=== PATIENT | female | born 1940 | race Caucasian/White ===

== ENCOUNTER → 2016-10-14 | Outpatient (CLI) | payer MEDICARE ==
[~2016-10-14] MED LIST: DENOSUMAB 60 MG/ML 1 ML SYRINGE SQ ONE
[2016-10-14 11:08] VITALS: BP 126/61; PULSE 68; RESP 16; TEMP 98.3
== END | disposition home or self-care (01) ==
LOC: PROCWHC3 10:27
PROVIDERS: ATTEND Family Medicine
DX: M81.0 Age-related osteoporosis without current pathological fracture (principal)
CPT/HCPCS: 96372; J0897

== ENCOUNTER → 2017-04-21 | Outpatient (CLI) | payer MEDICARE ==
[2017-04-21 10:51] VITALS: BP 123/69; PULSE 84; RESP 16; TEMP 97.8
== END ==
LOC: PROCWHC3 10:23
PROVIDERS: ATTEND Family Medicine
DX: M81.0 Age-related osteoporosis without current pathological fracture (principal)
CPT/HCPCS: 96372; J0897

== ENCOUNTER → 2017-10-28 | Outpatient (CLI) | payer MEDICARE ==
[~2017-10-28] MED LIST changes: +DENOSUMAB 60 MG/ML 1 ML SYRINGE SQ NR; -DENOSUMAB 60 MG/ML 1 ML SYRINGE SQ ONE
[2017-10-28 14:09] VITALS: BP 126/58; PULSE 67; RESP 16; TEMP 98.7
== END | disposition home or self-care (01) ==
LOC: PROCWHC3 13:50
PROVIDERS: ATTEND Family Medicine
DX: M81.0 Age-related osteoporosis without current pathological fracture (principal)
CPT/HCPCS: 96372; J0897

== ENCOUNTER → 2018-05-05 | Outpatient (CLI) | payer MEDICARE ==
[~2018-05-05] MED LIST changes: -DENOSUMAB 60 MG/ML 1 ML SYRINGE SQ NR; +DENOSUMAB 60 MG/ML 1 ML SYRINGE SQ ONE
[2018-05-05 14:07] VITALS: BP 145/75; PULSE 61; RESP 16; TEMP 97.9
== END | disposition home or self-care (01) ==
LOC: PROCWHC3 13:58
PROVIDERS: ATTEND Family Medicine
DX: M81.0 Age-related osteoporosis without current pathological fracture (principal)
CPT/HCPCS: 96372; J0897

== ENCOUNTER → 2018-05-18 | Outpatient (CLI) | payer MEDICARE ==
--- NOTE | 2018-05-21 11:14 | MM ---
Reason for exam: screening (asymptomatic). Last mammogram was performed 1 year and 1 month ago. History: Patient is postmenopausal and has history of breast cancer at age 44. Family history of breast cancer in paternal cousin and breast cancer in paternal aunt. Benign excisional biopsy of the right breast, 1985. Mastectomy of the left breast, 1985. Chemotherapy. Took tamoxifen for 27 years beginning at age 45. Physical Findings: A clinical breast exam by your physician is recommended on an annual basis and results should be correlated with mammographic findings. MG 3D Scr Sarah Unilateral W/Cad CC and MLO view(s) were taken of the right breast. Prior study comparison: May 02, 2017, bilateral MG 3d scr sarah unilateral w/cad. April 15, 2016, bilateral MG 3d screening mammo w/cad. The breast tissue is heterogeneously dense. This may lower the sensitivity of mammography. Asymmetric breast tissue upper outer quadrant stable with distortion from excisional biopsy. There is no discrete abnormality. ASSESSMENT: Benign, BI-RAD 2 RECOMMENDATION: Routine screening mammogram of the right breast in 1 year.
== END | disposition home or self-care (01) ==
LOC: RADMAMWWP 08:54
PROVIDERS: ATTEND Internal Medicine Hematology & Oncology
DX: Z12.31 Encounter for screening mammogram for malignant neoplasm of breast (principal)
CPT/HCPCS: 77067

== ENCOUNTER → 2018-06-01 | Outpatient (CLI) | payer MEDICARE ==
--- NOTE | 2018-06-02 19:05 | BD ---
EXAMINATION TYPE: Axial Bone Density DATE OF EXAM: 06/01/2018 COMPARISON: 05/03/2016 CLINICAL HISTORY: 77-year-old female postmenopausal screening Height: 63.2 IN Weight: 143 LBS FRAX RISK QUESTIONS: Secondary Osteoporosis: 3. Menopause before 45: YES AGE 44 RISK FACTORS HISTORY OF: Family History of Osteoporosis: YES AUNT Active: YES Postmenopausal woman: AGE 44 MEDICATIONS: Thyroid Medications: YES Which medication: Synthroid How Lon + YEARS Osteoporosis Medications: YES Which medication: Prolia How Lon YEARS Additional Medications: CALCIUM, VIT D, SYNTHROID, PROLIA, DAILY VIT, VIT C, FISH OIL Additional History: BREAST CANCER WITH CHEMO EXAM MEASUREMENTS: Bone mineral densitometry was performed using the [facility] System. Bone mineral density as measured about the Lumbar spine is: ----- L1-L4(G/cm2): 1.062 T Score Values are as follows: ----- L2: -1.7 ----- L3: -0.6 ----- L4: 0.3 ----- L1-L4: -1.0 ----- L1-L3: -1.5 (L4 excluded due to degenerative sclerosis artifactually elevating T score value) Bone mineral density has: Increased 5.1% since study of: 05/03/2016 Bone mineral density about the R hip (g/cm2): 0.930 Bone mineral density about the L hip (g/cm2): 0.945 T Score values are as follows: -----R Neck: -0.8 -----L Neck: -0.7 -----R Total: -0.9 -----L Total: -0.8 Bone mineral density has: Increased 3.2% since study of: 05/03/2016 IMPRESSION: Osteopenia (T Score between -2.5 and -1) (given T score values in the lumbar spine with L4 excluded i n the measurement due to degenerative sclerosis). There is slightly increased risk of fracture and the patient may be considered for treatment. Re-Screen 2-5 years. NOTE: T-SCORE=SD OF THE YOUNG ADULT MEAN.
== END | disposition home or self-care (01) ==
LOC: RADBDWWP 14:52
PROVIDERS: ATTEND Internal Medicine Hematology & Oncology
DX: M85.88 Other specified disorders of bone density and structure, other site (principal)
CPT/HCPCS: 77080

== ENCOUNTER → 2018-11-11 | Outpatient (CLI) | payer MEDICARE ==
[~2018-11-11] MED LIST changes: +DENOSUMAB 60 MG/ML 1 ML SYRINGE SQ NR; -DENOSUMAB 60 MG/ML 1 ML SYRINGE SQ ONE
[2018-11-11 11:03] VITALS: BP 128/73; PULSE 72; RESP 16; TEMP 97.9
== END ==
LOC: PROCWHC3 10:40
PROVIDERS: ATTEND Family Medicine
DX: M81.0 Age-related osteoporosis without current pathological fracture (principal)
CPT/HCPCS: 96372; J0897

== ENCOUNTER → 2019-05-14 | Outpatient (CLI) | payer MEDICARE ==
[~2019-05-14] MED LIST changes: -DENOSUMAB 60 MG/ML 1 ML SYRINGE SQ NR; +DENOSUMAB 60 MG/ML 1 ML SYRINGE SQ ONE
[2019-05-14 11:13] VITALS: BP 129/74; PULSE 61; RESP 18; TEMP 97.8
== END | disposition home or self-care (01) ==
LOC: PROCWHC3 10:57
PROVIDERS: ATTEND Family Medicine
DX: M81.0 Age-related osteoporosis without current pathological fracture (principal)
CPT/HCPCS: 96372; J0897

== ENCOUNTER → 2019-10-20 | Outpatient (CLI) | payer MEDICARE ==
--- NOTE | 2019-10-21 09:36 | MM ---
Reason for exam: screening (asymptomatic). Last mammogram was performed 1 year and 5 months ago. History: Patient is postmenopausal and has history of breast cancer at age 44. Family history of breast cancer in paternal cousin and breast cancer in paternal aunt. Benign excisional biopsy of the right breast, 1985. Mastectomy of the left breast, 1985. Chemotherapy. Took tamoxifen for 27 years beginning at age 45. Physical Findings: A clinical breast exam by your physician is recommended on an annual basis and results should be correlated with mammographic findings. MG 3D Scr Sarah Unilateral W/Cad Bilateral CC and MLO view(s) were taken. Prior study comparison: May 18, 2018, MG 3d scr sarah unilateral w/cad. May 02, 2017, bilateral MG 3d scr sarah unilateral w/cad. The breast tissue is heterogeneously dense. This may lower the sensitivity of mammography. No suspicious abnormality on the right breast. Stable post surgical change on the right breast. ASSESSMENT: Benign, BI-RAD 2 RECOMMENDATION: Routine screening mammogram of the right breast in 1 year.
== END | disposition home or self-care (01) ==
LOC: RADMAMWWP 11:01
PROVIDERS: ATTEND Internal Medicine Hematology & Oncology
DX: Z12.31 Encounter for screening mammogram for malignant neoplasm of breast (principal)
CPT/HCPCS: 77067

== ENCOUNTER → 2020-04-17 | Outpatient (CLI) | payer MEDICARE ==
[2020-04-17 11:26] LABS: Appearance,Urine Clear (Clear); Bilirubin,Urine Negative (Negative); Blood,Urine Trace (Negative); Color,Urine Light Yellow; Glucose,Urine (UA) Negative (Negative); Ketones,Urine Negative (Negative); Leukocyte Esterase,Urine Negative (Negative); Mucus,Urine Rare /hpf; Nitrite,Urine Negative (Negative); Protein,Urine Negative (Negative); RBC,Urine 1 /hpf (0-5); Specific Gravity,Urine 1.007 (1.001-1.035); Squamous Epithelial Cell,Urine <1 /hpf (0-4); Urobilinogen,Urine <2.0 mg/dL (<2.0); WBC,Urine 1 /hpf (0-5)
[2020-04-17 11:29] LABS: Basophils % (A) 1 %; Eosinophils # (A) 0.1 k/uL (0-0.7); Eosinophils % (A) 2 %; HCT 40.5 % (34.0-46.0); Lymphocytes % (A) 32 %; MCH 30.4 pg (25.0-35.0); MCHC 32.2 g/dL (31.0-37.0); MCV 94.3 fL (80.0-100.0); Mean Platelet Volume 6.5; Monocytes # (A) 0.4 k/uL (0-1.0); Monocytes % (A) 6 %; Neutrophils # (A) 3.6 k/uL (1.3-7.7); Neutrophils % (A) 57 %; Platelet Count 263 k/uL (150-450); RBC 4.29 m/uL (3.80-5.40); RDW 12.9 % (11.5-15.5); WBC 6.3 k/uL (3.8-10.6)
[2020-04-17 11:39] LABS: INR 0.9 (<1.2); Partial Thromboplastin Time 22.9 sec (22.0-30.0); Prothrombin Time 9.7 sec (9.0-12.0)
[2020-04-17 11:41] LABS: ALT 24 U/L (4-34); AST 29 U/L (14-36); African American GFR (CKD) >90 (>60 ml/min/1.73 sqM); Albumin 4.7 g/dL (3.5-5.0); Alkaline Phosphatase 54 U/L (38-126); Anion Gap 5 mmol/L; Blood Urea Nitrogen 16 mg/dL (7-17); Calcium 9.8 mg/dL (8.4-10.2); Carbon Dioxide 32 mmol/L (22-30); Chloride 102 mmol/L (98-107); Glucose 106 mg/dL (74-99); Non-African American GFR(CKD) >90 (>60 ml/min/1.73 sqM); Sodium 139 mmol/L (137-145); Total Bilirubin 0.5 mg/dL (0.2-1.3); Total Protein 7.4 g/dL (6.3-8.2)
== END | disposition home or self-care (01) ==
LOC: LABPAT 09:21
PROVIDERS: ATTEND Family Medicine
DX: Z01.818 Encounter for other preprocedural examination (principal); Z01.812 Encounter for preprocedural laboratory examination
CPT/HCPCS: 80053; 81001; 85025; 85610; 85730; 87070

== ENCOUNTER 2020-04-24 08:40 | Day surgery (SDC) | payer MEDICARE ==
[2020-04-17 14:47] VITALS: BMI 23.8
--- NOTE | 2020-04-23 10:44 | HP ---
HISTORY AND PHYSICAL REASON FOR ADMISSION: Surgery is scheduled for 04/24/2020. HISTORY OF PRESENT ILLNESS: Maria Mohamud is a 79-year-old patient seen with symptomatic right hip osteoarthritis. We discussed options for treatment. She elected to proceed with direct anterior right total hip arthroplasty. Consent regarding the procedure was obtained. Clearance was provided by Dr. Babcock. PAST MEDICAL HISTORY: Hypothyroidism. PAST SURGICAL HISTORY: Bilateral total knee arthroplasty. MEDICATIONS: Lipitor, Synthroid, tramadol, aspirin. ALLERGIES: None. SOCIAL HISTORY: She denies current tobacco use. PHYSICAL EXAMINATION: Evaluation of the right hip: There is very limited range of motion with severe pain. Diffuse tenderness about the hip girdle. Straight leg raise is negative. Impingement sign is positive. Distal neurovascular exam is intact. RADIOGRAPHS: Radiographs of the right hip reveals severe osteoarthritic changes. IMPRESSION: 1. Right hip osteoarthritis. 2. Hypothyroidism. 3. Hyperlipidemia. PLAN: Direct anterior right total hip arthroplasty. Surgery is 04/24/2020. MMODL / IJN: [id number] /
[~2020-04-24 08:40] MED LIST changes: +ACETAMINOPHEN TAB 500 MG TAB PO PRN; -DENOSUMAB 60 MG/ML 1 ML SYRINGE SQ ONE; +DEXAMETHASONE SOD PHOSPHATE 4 MG/ML 1 ML VIAL IV ONE; +HYDROmorphone 0.5 MG/0.5 ML SYRINGE IVP PRN; +MELOXICAM 7.5 MG TAB PO PRN; +ONDANSETRON 4 MG/2 ML VIAL IVP ONE; +TRANEXAMIC ACID 1,000 MG in SODIUM CHLORIDE 0.9% 100 ML IVPB PRN
[2020-04-24] MEDS: LACTATED RINGERS 1,000 ML IV SCH ×2 (09:28→15:57)
[2020-04-24] MEDS ORDERED: ePHEDrine SULFATE/0.9% NACL/PF 50 MG/5 ML SYRINGE IV ONE (09:47)
[2020-04-24] MEDS ORDERED: TRANEXAMIC ACID 1,000 MG/10 ML VIAL ONE (09:47)
[2020-04-24] MEDS ORDERED: PROPOFOL 10 MG/ML 20 ML VIAL IV ONE (09:47)
[2020-04-24] MEDS ORDERED: MIDAZOLAM 2 MG/2 ML VIAL ONE (09:47)
[2020-04-24] MEDS ORDERED: fentaNYL (PF) 50 MCG/ML 2 ML AMP ONE (09:47)
[2020-04-24] MEDS ORDERED: SODIUM CHLORIDE 0.9% 100 ML BAG ONE (09:47)
[2020-04-24] MEDS: ROPIVACAINE 246.25 MG, EPINEPHrine 0.5 MG, KETOROLAC 30 MG, cloNIDine HCL/PF 80 MCG, WA... MISCELLANE PRN ×10 (09:49→11:07)
[2020-04-24] MEDS ORDERED: ceFAZolin 1,000 MG in SODIUM CHLORIDE 0.9% 1,000 ML IRRIGATION ONE (09:50)
[2020-04-24] MEDS ORDERED: LACTATED RINGERS 1,000 ML IV ONE (11:26)
[2020-04-24] MEDS ORDERED: HYDROcodone/APAP 5-325MG 1 EACH TAB PO PRN (11:31)
[2020-04-24] MEDS ORDERED: NALOXONE 0.4 MG/ML 1 ML VIAL IV PRN (11:31)
[2020-04-24] MEDS ORDERED: HYDROmorphone 0.5 MG/0.5 ML SYRINGE IVP PRN ×2 (11:31)
[2020-04-24] MEDS ORDERED: HYDROmorphone 0.2 MG/1 ML SYRINGE IVP PRN (11:31)
[2020-04-24] MEDS ORDERED: ONDANSETRON 4 MG/2 ML VIAL IVP PRN (11:31)
--- NOTE | 2020-04-24 11:31 | P.OP ---
Date of Procedure: 04/24/20 Preoperative Diagnosis: Right hip osteoarthritis Postoperative Diagnosis: Right hip osteoarthritis Procedure(s) Performed: Direct anterior right total hip arthroplasty Implants: 1. Depuy Corail KA size 9 press-fit femoral stem 2. Depuy Shirley 52 mm multihole press-fit acetabular shell 3. Depuy Shirley neutral polyethylene acetabular liner 52 mm OD 36 mm ID 4. Depuy metal femoral head 36 mm -2 Anesthesia: local, spinal Surgeon: Spencer Welch [employer]idential [employer] Sales Manager #1: Joel Schmidt Estimated Blood Loss (ml): 145 Pathology: other (Femoral head) Condition: stable Disposition: PACU Indications for Procedure: 79-year-old patient seen with symptomatic right hip osteoarthritis. After treatment options were discussed, she elected to proceed with total hip arthroplasty. Operative Findings: See description of procedure Description of Procedure: The patient was taken to the operative suite. Patient underwent a spinal anesthetic by the department of anesthesia. Patient was then transferred to the [place] table. Patient was given preoperative IV antibiotics and TXA. Both lower extremities were placed in standard leg spars. The hip was then prepped and draped in the normal sterile orthopedic fashion. A standard anterior incision was made beginning 3 cm lateral and 1 cm distal to the ASIS extending 10 cm. Dissection was then carried down through the subcutaneous soft tissues down to the fascia overlying the tensor fascia vincent. An incision was now made through the fascia. Careful dissection was taken down exposing the tensor fascia vincent muscle. A Cobra retractor was now placed along the medial femoral neck and a second one along the lateral femoral neck. The venous circumflex vessels were now identified, cauterized and clipped. We identified the anterior hip capsule. An incision was made through the hip capsule along the lateral border. I performed a partial anterior capsulectomy. Retractors were now placed around the femoral neck itself. A femoral neck cut was now made with a sagittal saw. It was completed with an osteotome at the lateral neck area. The femoral head was now removed without difficulty. The extremity was now rotated to 45 of external rotation. It was locked in position. Residual labrum was now debrided out. Serial reaming was performed of the acetabulum while Adam FOOTE assisted holding an anterior retractor for exposure. Once we reached the appropriate size and a trial was position and fit nicely. The appropriate size was now chosen opened and made available. It was introduced into the acetabulum without difficulty. The C-arm/fluoroscopy was now brought into the operative field. We made sure we had a true AP pelvic view. We now under direct C- arm/fluoroscopy introduced into the acetabular component with appropriate version and inclination. I held the cup in appropriate position well Adam FOOTE used a mallet to seat the acetabular component. I noted the component now to be well seated and stable. Acetabular cup introduce her was removed. The C-arm was pulled back. An appropriate liner was introduced and clicked into position. It was felt to be stable. At this point retractors were removed. The extremity was now placed into 120 external rotation with no traction. The leg was now dropped to the ground and adducted. Appropriate retractors were now positioned along the proximal femur. We also placed our femoral look into position. Additional capsular releasing was performed to gain access to the proximal femur. We now used a box osteotome. A canal finder was now utilized. Serial broaching was now performed with the assistance of Adam FOOTE tapping the broaches down with a mallet while held the broach in appropriate rotation and position. This was done until we reached the appropriate size with good overall rotational stability. Appropriate calcar planing was performed. A trial head/neck was placed into position. The hip was now reduced. The C-arm /fluoroscopy was brought back into the operative field. I obtained an AP pelvis to ascertain leg lengths which seems reasonable at this point. The trial components in position. The C-arm/fluoroscopy was pulled back. Retractors were repositioned and the hip was dislocated. The leg was again taken down to the ground and adducted. Appropriate retractors were repositioned as well as the femoral hook. All trial components were removed. I did note a small crack through the proximal calcar. I now prophylactically placed a cable along the proximal femoral neck. The femoral implant was opened along with the femoral head. The femoral implant was introduced on the appropriate handle into our pre-broached area. I held the component position well Adam FOOTE used a mallet to seat the femoral component. The femoral component was now noted to be well seated and stable.. The femoral head was introduced with good positioning and fixation noted. Retractors were now removed. The hip was now reduced. There appeared be good positioning of the hip confirmed on intraoperative fluoroscopy. Spot films were obtained to document this. A second gram of TXA was given. The deep and superficial soft tissues were infiltrated with local analgesic. Bipolar cautery had been utilized intermittently through the procedure for hemostasis. The wound was irrigated copiously with pulse lavage m echanical irrigation. The fascia was repaired with Vicryl suture. The subcutaneous soft tissues were repaired in layers with Vicryl suture. The skin was approximated with pernio/Dermabond. Sterile dressings were applied. Patient was then awakened, transferred to a bed and taken to recovery in stable condition. Adam FOOTE assisted with the complex procedure.
--- NOTE | 2020-04-24 11:55 | XR ---
EXAMINATION TYPE: XR Hip Limited RT, FL guidance operating room DATE OF EXAM: 04/24/2020 Comparison: Outside exam 03/01/2020 Clinical History: 79 year-old female right anterior hip Findings: Intraoperative image during right hip total arthroplasty. FLUOROSCOPY Fluoroscopy time of 19 seconds was used during right hip total arthroplasty. 1 image/s document/s th e procedure. Impression: Intraoperative fluoroscopy as above.
[2020-04-24] MEDS: HYDROcodone/APAP 5-325MG 1 EACH TAB PO PRN ×2 (13:42→20:39)
[2020-04-24] MEDS ORDERED: SENNOSIDES-DOCUSATE SODIUM 1 EACH TAB PO SCH (21:00)
[2020-04-24 22:42] VITALS: RESP 16
[2020-04-25] MEDS: HYDROcodone/APAP 5-325MG 1 EACH TAB PO PRN ×2 (03:03→08:37)
[2020-04-25 04:55] VITALS: TEMP 98.3
[2020-04-25 06:36] LABS: Basophils % (A) 0 %; Eosinophils % (A) 0 %; Lymphocytes # (A) 1.6 k/uL (1.0-4.8); Lymphocytes % (A) 16 %; MCH 31.9 pg (25.0-35.0); MCHC 33.9 g/dL (31.0-37.0); MCV 93.9 fL (80.0-100.0); Monocytes # (A) 0.7 k/uL (0-1.0); Monocytes % (A) 7 %; Neutrophils # (A) 7.5 k/uL (1.3-7.7); Neutrophils % (A) 75 %; Platelet Count 218 k/uL (150-450); RBC 3.09 m/uL (3.80-5.40); RDW 13.4 % (11.5-15.5); WBC 9.9 k/uL (3.8-10.6)
[2020-04-25 06:48] LABS: HGB 9.8 gm/dL (11.4-16.0)
[2020-04-25 08:14] VITALS: BP 97/58; PULSE 75
[2020-04-25] MEDS: LACTATED RINGERS 1,000 ML IV SCH ×2 (08:38)
[2020-04-25] MEDS ORDERED: ENOXAPARIN 40 MG/0.4 ML SYRINGE SQ SCH (09:00)
--- NOTE | 2020-04-25 10:43 | P.PN ---
Subjective Progress Note Date: 04/25/20 Principal diagnosis: Status post direct anterior right total hip arthroplasty Patient evaluated at bedside, she is resting comfortably. Her pain is well- controlled. She done well with therapy. She denies any headaches, lightheadedness, chest pain, shortness of breath, nausea or vomiting, fever or chills. Objective - Vital Signs Vital signs: Vital Signs Temp 98.3 F 04/25/20 08:13 Pulse 75 04/25/20 08:13 Resp 16 04/25/20 08:13 BP 97/58 04/25/20 08:13 Pulse Ox 95 04/25/20 08:13 Intake & Output 04/24/20 04/25/20 04/25/20 18:59 06:59 18:59 Intake Total 1501 Output Total 145 Balance 1356 Weight 64.8 kg Intake: IV 1251 Intake, IV Titration 250 Amount Lactated Ringers 1,000 ml 250 @ 50 mls/hr IV .Q20H OLGA Rx#:[id number] Output: Estimated Blood Loss 145 Other: Voiding Method Toilet # Voids 1 2 1 - Exam Right lower extremity: Incision is clean, dry, and intact. The foam dressing is in good condition. There is minimal soft tissue swelling and ecchymosis surrounding the medial and lateral aspects of the incision. Calf is soft, no tenderness with palpation. Plantar flexion, dorsiflexion, EHL, FHL are intact. Sensory exam to light touch throughout the extremity is intact, dorsal pedis pulses 2+. - Labs CBC & Chem 7: 04/25/20 05:59 Labs: Abnormal Lab Results - Last 24 Hours (Table) 04/25/20 Range/Units 05:59 RBC 3.09 L (3.80-5.40) m/uL Hgb 9.8 L D (11.4-16.0) gm/dL Hct 29.0 L (34.0-46.0) % Assessment and Plan Assessment: s/p direct anterior right total hip arthroplasty Plan: Pain control, [place] mg/325mg for home DVT prophylaxis, aspirin 81mg bid for 1 month Wound care discussed Home health care at discharge Medical recommendations Discharge home today Time with Patient: Less than 30
[2020-04-25] MEDS ORDERED: MULTIVITAMINS, THERA 1 EACH TAB PO SCH (10:45)
[2020-04-25] MEDS ORDERED: LEVOTHYROXINE 112 MCG TAB PO SCH (10:45)
--- NOTE | 2020-04-25 10:47 | P.DS ---
Providers Date of admission: 04/24/2020 Expected date of discharge: 04/25/20 Attending physician: Spencer Welch Consults: 04/24/20 11:31 Consult Physician Routine Consulting Provider: Vishal Buckner Consult Reason/Comments: Medical management Do you want consulting provider notified?: Yes [facility] Course: Date of admission: 04/24/2020 Date of discharge: 04/25/2020 Admission diagnosis: Status post direct anterior right total hip arthroplasty Discharge diagnosis: Same Attending physician: Dr. Welch Surgical procedures: Direct anterior right total hip arthroplasty Brief history: Patient is a 79-year-old female with a history of with progressive primary right hip osteoarthritis. At this point patient has failed conservative treatment measures and has opted to proceed with a elective direct anterior right total hip arthroplasty. Hospital course: Details of patient's surgery can be found in operative report. Patient tolerated the procedure well and was subsequently transported to orthopedic floor. Patient's orthopeidc and medical care was provided daily. Patient had daily laboratory tests performed for evaluation of overall blood counts. Patient had daily physical therapy to include strengthening range of motion as well as education with walker ambulation. Patient was treated with Lovenox for their postoperative DVT prophylaxis during their inpatient stay. Patient was noted to have a relatively uneventful postoperative course. Patient reported satisfactory pain control with oral pain medications by postoperative day 0. Patient showed satisfactory progress with physical therapy. Patient moved steadily through the program and had no difficulty meeting the goals by postoperative day 1. Given patient's otherwise satisfactory course and having met physical therapy goals, plan is to discharge patient home on postoperative day 1. Discharge condition/disposition: Patient will be discharged home in stable condition. Discharge medications: Instructions are given on resumption of patient's normal daily medications per primary care recommendation, in addition patient will be prescribed [place] 5mg/325mg, Colace 100mg, Aspirin 81mg, Ferrous Sulfate 325mg. Discharge instructions: 1. Wound care and infection precautions, keep incision dry and covered while showering, no lotions, creams, moisturizers. No soaking, tubs, pools, hottubs. Do not scrub over the incision. 2. Weight-bear as tolerated with walker / cane until follow-up. 3. Ice and elevate when necessary. Do not exceed 20 minutes per hour with ice pack. 4. Utilize compression sleeve until seen at first follow up appointment. 5. Visiting nursing care. 6. Home physical therapy. 7. Pain meds and anticoagulants per prescription. 8. Pain medication has potential to cause constipation. Increase oral fluid and fiber intake. Contact primary care provider if you have not had a bowel movement within 48 hours after discharge 9. No anti-inflammatory medication until discussed at first post operative visit, this including Motrin, Aleve, Mobic, Diclofenac. 10. Follow up in office at 2 weeks postop with Adam Schmidt PA-C 11. Follow up with your primary care doctor 7-10 days after discharge. 12. Contact [facility] with any questions, . Procedures: Direct anterior right total hip arthroplasty Patient Condition at Discharge: Good Plan - Discharge Summary Discharge Rx Participant: Yes New Discharge Prescriptions: New Aspirin [Adult Low Dose Aspirin EC] 81 mg PO BID #60 tablet. Docusate [Colace] 100 mg PO DAILY #30 capsule Hydrocodone/Acetaminophen [[place]mont 5-325] 1 each PO Q6HR PRN #28 tab PRN Reason: Pain Ferrous Sulfate [Feosol] 325 mg PO BID #30 tab Discontinued Aspirin 81 mg PO DAILY No Action Levothyroxine Sodium [Synthroid] 112 mcg PO DAILY Fish Oil/Dha/Epa [Fish Oil 1,200 mg Fish Oil] 1 tab PO DAILY Calcium Carb-Vit D 500Mg-200Un [Oscal 500+D] 1 each PO DAILY Multivitamins, Thera [Multivitamin (formulary)] 1 tab PO DAILY Atorvastatin Calcium [Lipitor] 10 mg PO HS traMADol HCL [Ultram] 50 mg PO HS Aspercreme Cream 4% 1 applicate TOPICAL DIRECTED PRN PRN Reason: Pain Ascorbic Acid/Multivit-Min [Emergen-C 1,000 mg Packet] 1,000 mg PO DAILY Discharge Medication List Fish Oil/Dha/Epa [Fish Oil 1,200 mg Fish Oil] 1 tab PO DAILY 10/15/13 [History] Levothyroxine Sodium [Synthroid] 112 mcg PO DAILY 10/15/13 [History] Calcium Carb-Vit D 500Mg-200Un [Oscal 500+D] 1 each PO DAILY 10/14/16 [History] Ascorbic Acid/Multivit-Min [Emergen-C 1,000 mg Packet] 1,000 mg PO DAILY 04/17/20 [History] Aspercreme Cream 4% 1 applicate TOPICAL DIRECTED PRN 04/17/20 [History] Atorvastatin Calcium [Lipitor] 10 mg PO HS 04/17/20 [History] Multivitamins, Thera [Multivitamin (formulary)] 1 tab PO DAILY 04/17/20 [History] traMADol HCL [Ultram] 50 mg PO HS 04/17/20 [History] Aspirin [Adult Low Dose Aspirin EC] 81 mg PO BID #60 tablet. 04/25/20 [Rx] Docusate [Colace] 100 mg PO DAILY #30 capsule 04/25/20 [Rx] Ferrous Sulfate [Feosol] 325 mg PO BID #30 tab 04/25/20 [Rx] Hydrocodone/Acetaminophen [[place] 5-325] 1 each PO Q6HR PRN #28 tab 04/25/20 [Rx] Follow up Appointment(s)/Referral(s): [facility] [NON-STAFF] - As Needed (walker) [facility] - As Needed Joel Schmidt PAC [PHYSICIAN SUPERVISOR PHOTOCOMPOSITION] - 2 Weeks Ambulatory/Diagnostic Orders: Complete Blood Count w/diff [LAB.AMB] Location: None Selected Activity/Diet/Wound Care/Special Instructions: Orthopedic Discharge Instructions: 1. Wound care and infection precautions, keep incision dry and covered while showering, no lotions, creams, moisturizers. No soaking, pools, hot tubs. Do not scrub over incision. Okay to remove foam dressing on 05/04/2020 2. Weight-bear as tolerated with walker / cane until follow-up. 3. Ice and elevate when necessary. Do not exceed 20 minutes per hour with ice pack. 4. Utilize compression sleeve until seen at first follow up appointment. 5. Pain meds and anticoagulants per prescription. 6. Pain medication has potential to cause constipation. Increase oral fluid and fiber intake. Contact primary care provider if you have not had a bowel movement within 48 hours after discharge. 7. No anti-inflammatory medication until discussed at first post operative visit, this including Motrin, Aleve, Mobic, Diclofenac. 8. Follow up in office at 2 weeks postop with Adam Schmidt PA-C 9. Follow up with your primary care doctor 7-10 days after discharge. 10. Contact [facility] with any questions, . Discharge Disposition: HOME WITH HOME HEALTH SERVICES
[2020-04-25] MEDS ORDERED: ATORVASTATIN 10 MG TAB PO SCH (21:00)
--- NOTE | 2020-04-25 22:22 | P.CONS ---
History of Present Illness - Reason for Consult Consult date: 04/25/20 Medical management Requesting physician: Spencer Welch - Chief Complaint Right hip pain - History of Present Illness Consultation: Jacy mathis 79-year-old patient of Dr. Babcock. Chronic stable medical conditions include osteoarthritis, hypothyroid, varicose veins. Had DVT in the remote past. Also history of left breast cancer. Patient has undergone right total hip arthroplasty. Pain is controlled. No nausea vomiting. No chest pain no shortness of breath. Denies any cardiac history. Has been up to the bathroom. Review of systems: GEN.: None EYES: None HEENT: None NECK: None RESPIRATORY: None CARDIOVASCULAR: None GASTROINTESTINAL: None GENITOURINARY: None MUSCULOSKELETAL: Joint pains LYMPHATICS: None HEMATOLOGICAL: None PSYCHIATRY: None NEUROLOGICAL: None Past medical history to include: DVT in the remote past, osteoarthritis, hypothyroid, left breast cancer with mastectomy, varicose veins, Social history: This the . No history of smoking. Alcohol occasionally. Family history: Reviewed, noncontributory to presentation Physical examination: VITAL SIGNS: 98.3, 75, 16, 97/58, 95% room air GENERAL: BMI 24.9, sitting up, comfortable. EYES: Pupils equal. Conjunctiva normal. HEENT: External appearance of nose and ears normal, oral cavity grossly normal. NECK: JVD not raised; masses not palpable. HEART: First and second heart sounds are normal; no edema. LUNGS: Respiratory rate normal; clear to auscultation. ABDOMEN: Soft, nontender, liver spleen not palpable, no masses palpable. PSYCH: Alert and oriented x3; mood and affect normal MUSCULAR skeletal: Dressing over the right hip incision, evidence of OA. NEUROLOGICAL: Cranial nerves grossly intact; no facial asymmetry, power and sensation grossly intact. LYMPHATICS: No lymph nodes palpable in the axilla and neck INVESTIGATIONS, reviewed in the clinical context: White count 9.9 hemoglobin 9.8 platelets 218 Previous testing: Hemoglobin 13 on April 17 creatinine 0.4 potassium 5 Assessment: -Right total hip arthroplasty -Primary osteoarthritis -Acute postprocedure blood loss anemia as expected from surgery -Hypothyroid -Hyperlipidemia -Varicose veins lower extremity Plan: Care was discussed with the patient. Questions answered. Home medications to be resumed. DVT prophylaxis per Dr. Horvath. Patient getting aspirin 81 mg twice a day. Patient also to take iron supplementation. Follow-up with PCP. Thank you Dr. Horvath Past Medical History Past Medical History: Cancer, Deep Vein Thrombosis (DVT), Osteoarthritis (OA), Thyroid Disorder Additional Past Medical History / Comment(s): LT BREAST CA, irregular heartbeat, heart murmer, varicose veins, hx anemia History of Any Multi-Drug Resistant Organisms: None Reported Past Surgical History: Section, Joint Replacement, Tonsillectomy Additional Past Surgical History / Comment(s): LT MASTECTOMY, BILAT KNEE REPLACEMENTS, andrew cataracts, Past Anesthesia/Blood Transfusion Reactions: Motion Sickness Past Psychological History: No Psychological Hx Reported Smoking Status: Never smoker Past Alcohol Use History: Occasional Past Drug Use History: None Reported - Past Family History Mother Family Medical History: No Reported History Medications and Allergies Home Medications Medication Instructions Recorded Confirmed Type Fish Oil/Dha/Epa [Fish Oil 1,200 1 tab PO DAILY 10/15/13 04/17/20 History mg Fish Oil] Levothyroxine Sodium [Synthroid] 112 mcg PO DAILY 10/15/13 04/24/20 History Calcium Carb-Vit D 500Mg-200Un 1 each PO DAILY 10/14/16 04/24/20 History [Oscal 500+D] Ascorbic Acid/Multivit-Min 1,000 mg PO DAILY 04/17/20 04/24/20 History [Emergen-C 1,000 mg Packet] Aspercreme Cream 4% 1 applicate TOPICAL DIRECTED PRN 04/17/20 04/17/20 History Atorvastatin Calcium [Lipitor] 10 mg PO HS 04/17/20 04/24/20 History Multivitamins, Thera [Multivitamin 1 tab PO DAILY 04/17/20 04/17/20 History (formulary)] Aspirin [Adult Low Dose Aspirin EC] 81 mg PO BID #60 tablet. 04/25/20 Rx Docusate [Colace] 100 mg PO DAILY #30 capsule 04/25/20 Rx Ferrous Sulfate [Feosol] 325 mg PO BID #30 tab 04/25/20 Rx Hydrocodone/Acetaminophen [[place] 1 each PO Q6HR PRN #28 tab 04/25/20 Rx 5-325] Allergies Allergy/AdvReac Type Severity Reaction Status Date / Time No Known Allergies Allergy Verified 04/24/20 09:19 Physical Exam Vitals: Vital Signs Temp Pulse Pulse Resp BP BP Pulse Ox 04/25/20 08:13 98.3 F 75 16 97/58 95 04/25/20 02:15 98.3 F 16 101/58 96 04/24/20 20:30 98.1 F 69 16 99/57 97 04/24/20 20:00 16 04/24/20 14:59 90 108/69 93 L 04/24/20 14:46 105 H 127/67 04/24/20 14:29 100 123/72 95 04/24/20 14:15 100 120/62 96 04/24/20 14:00 99 118/67 98 04/24/20 13:46 95 129/82 97 04/24/20 13:31 93 130/82 95 04/24/20 13:16 91 133/74 94 L 04/24/20 13:00 90 120/75 94 L 04/24/20 12:45 93 119/72 92 L 04/24/20 12:33 97.4 F L 86 18 123/73 94 L 04/24/20 12:00 76 18 113/55 100 04/24/20 11:42 74 18 112/54 100 Intake and Output 04/24/20 04/25/20 04/25/20 22:59 06:59 14:59 Intake Total 250 Balance 250 Intake: Intake, IV Titration 250 Amount Lactated Ringers 1,000 ml 250 @ 50 mls/hr IV .Q20H [facility], [facility] Rx#:[id number] Other: Voiding Method Toilet # Voids 1 2 1 Results CBC & Chem 7: 04/25/20 05:59 Labs: Abnormal Lab Results - Last 24 Hours (Table) 04/25/20 Range/Units 05:59 RBC 3.09 L (3.80-5.40) m/uL Hgb 9.8 L D (11.4-16.0) gm/dL Hct 29.0 L (34.0-46.0) %
== END 2020-04-25 12:42 | disposition home health service (06) ==
LOC: OR 08:40 → 4SSUR 11:27 → OR 04-25 12:42
PROVIDERS: ATTEND Orthopaedic Surgery
DX: M16.11 Unilateral primary osteoarthritis, right hip (principal); E03.9 Hypothyroidism, unspecified; K21.9 Gastro-esophageal reflux disease without esophagitis; I83.90 Asymptomatic varicose veins of unspecified lower extremity; D62 Acute posthemorrhagic anemia; E78.2 Mixed hyperlipidemia; I34.0 Nonrheumatic mitral (valve) insufficiency; M81.0 Age-related osteoporosis without current pathological fracture; Z90.12 Acquired absence of left breast and nipple; M51.37 Other intervertebral disc degeneration, lumbosacral region; Z79.1 Long term (current) use of non-steroidal anti-inflammatories (NSAID); Z79.890 Hormone replacement therapy; Z79.899 Other long term (current) drug therapy; Z85.3 Personal history of malignant neoplasm of breast; Z86.718 Personal history of other venous thrombosis and embolism; Z96.653 Presence of artificial knee joint, bilateral; Z98.51 Tubal ligation status; Z98.890 Other specified postprocedural states; Z98.41 Cataract extraction status, right eye; Z98.42 Cataract extraction status, left eye; Z80.0 Family history of malignant neoplasm of digestive organs; Z81.8 Family history of other mental and behavioral disorders; Z98.891 History of uterine scar from previous surgery
CPT/HCPCS: 97110; 97161; 85025; 88300; 73501; 27130; C1713; C1776; J2250; J0171; J1100; J0690 ×3; J2405; J1650; J3010; J1885; J2795; J2704; J0735; 36415; 86850; 86900; 86901

== ENCOUNTER → 2020-12-12 | Outpatient (CLI) | payer MEDICARE ==
--- NOTE | 2020-12-12 14:50 | BD ---
EXAMINATION TYPE: Axial Bone Density DATE OF EXAM: 12/12/2020 COMPARISON: 06/01/2018 CLINICAL HISTORY: Disorder of bone Height: 63 Weight: 139.9 FRAX RISK QUESTIONS: Alcohol (3 or more units per day): no Family History (Parent hip fracture): no Glucocorticoids (More than 3mos): no (Ex: prednisone, prednisolone, methylprednisolone, dexamethasone, and hydrocortisone). History of Fracture in Adulthood: no Secondary Osteoporosis: 1. Type 1 Diabetes: no 2. Hyperthyroidism: no 3. Menopause before 45: yes 4. Malnutrition: no 5. Chronic liver disease: no Rheumatoid Arthritis: no Current Tobacco Use: no RISK FACTORS HISTORY OF: Surgery to Spine/Hip(right/left)/Wrist (right/left): right hip replaced When: 2020 Family History of Osteoporosis: yes Active: yes Diet low in dairy products/other sources of calcium: no Postmenopausal woman: age 43 induced from cancer treatments Lost more than 2 inches in height since high school: no MEDICATIONS: Thyroid Medications: synthroid How Lon years Additional History: took prolia for about 3 years- stopped taking because insurance wanted a rescan o f her bones EXAM MEASUREMENTS: Bone mineral densitometry was performed using the [employer]. Bone mineral density as measured about the Lumbar spine is: ----- L1-L4(G/cm2): 1.054 T Score Values are as follows: ----- L2: -2.0 ----- L3: -0.8 ----- L4: 0.0 ----- L1-L4: -1.0 Bone mineral density has: decreased -1.9% since Bone mineral density about the L hip (g/cm2): 0.890 T Score values are as follows: -----L Neck: -1.1 -----L Total: -1.2 Bone mineral density has: decreased -5.1% since study of: 06.01.2018 IMPRESSION: Osteopenia NOTE: T-SCORE=SD OF THE YOUNG ADULT MEAN.
--- NOTE | 2020-12-13 10:52 | MM ---
Reason for exam: screening (asymptomatic). Last mammogram was performed 1 year and 2 months ago. History: Patient is postmenopausal and has history of breast cancer at age 44. Family history of breast cancer in paternal cousin and breast cancer in paternal aunt. Benign excisional biopsy of the right breast, 1985. Mastectomy of the left breast, 1985. Chemotherapy. Took tamoxifen for 27 years beginning at age 45. Physical Findings: A clinical breast exam by your physician is recommended on an annual basis and results should be correlated with mammographic findings. MG 3D Scr Sarah Unilateral W/Cad CC and MLO view(s) were taken of the right breast. Prior study comparison: October 20, 2019, bilateral MG 3d scr sarah unilateral w/cad. May 18, 2018, MG 3d scr sarah unilateral w/cad. The breast tissue is heterogeneously dense. This may lower the sensitivity of mammography. There is no discrete abnormality. No significant changes when compared with prior studies. ASSESSMENT: Benign, BI-RAD 2 RECOMMENDATION: Routine screening mammogram of the right breast in 1 year.
== END | disposition home or self-care (01) ==
LOC: RADMAMWWP 13:25
PROVIDERS: ATTEND Obstetrics & Gynecology
DX: R92.2 Inconclusive mammogram (principal); Z78.0 Asymptomatic menopausal state; Z85.3 Personal history of malignant neoplasm of breast; Z80.3 Family history of malignant neoplasm of breast; M85.80 Other specified disorders of bone density and structure, unspecified site
CPT/HCPCS: 77067; 77080

== ENCOUNTER → 2021-11-28 | Outpatient (CLI) | payer MEDICARE ==
[~2021-11-28] MED LIST changes: -ACETAMINOPHEN TAB 500 MG TAB PO PRN; +DENOSUMAB 60 MG/ML 1 ML SYRINGE SQ NR; -DEXAMETHASONE SOD PHOSPHATE 4 MG/ML 1 ML VIAL IV ONE; -HYDROmorphone 0.5 MG/0.5 ML SYRINGE IVP PRN; -MELOXICAM 7.5 MG TAB PO PRN; -ONDANSETRON 4 MG/2 ML VIAL IVP ONE; -TRANEXAMIC ACID 1,000 MG in SODIUM CHLORIDE 0.9% 100 ML IVPB PRN
[2021-11-28 10:29] VITALS: BP 149/76; PULSE 61; RESP 16; TEMP 98.1
== END ==
LOC: PROCWHC3 10:17
PROVIDERS: ATTEND Family Medicine
DX: M81.0 Age-related osteoporosis without current pathological fracture (principal)
CPT/HCPCS: 96372; J0897

== ENCOUNTER → 2021-12-20 | Outpatient (CLI) | payer MEDICARE ==
--- NOTE | 2021-12-21 10:19 | MM ---
Reason for Exam: Screening (asymptomatic). Last screening mammogram was performed 12 month(s) ago. Patient History: Menarche at age 13. First Full-Term at age 26. Postmenopausal. Breast cancer, left, age 44. Previous chemotherapy at age 44. Tamoxifen for 5 years from age 45 until age 50. 1985, Mastectomy on the Left side. 1985, Benign Excisional Biopsy on the right side. Chemotherapy. Paternal cousin (zachery) had breast cancer, age 50. Prior Study Comparison: 05/18/2018 Screening Mammogram, [facility]. 10/20/2019 Bilateral Screening Mammogram, [facility]. 12/12/2020 Bilateral Screening Mammogram, [facility]. Tissue Density: Right: The breast tissue is heterogeneously dense. This may lower the sensitivity of mammography. Findings: Analyzed By CAD. Findings are stable. No suspicious groups of microcalcifications, spiculated or lobular masses, architectural distortion or other secondary signs of malignancy are mammographically apparent. Overall Assessment: Benign, BI-RAD 2 Management: Screening Mammogram of the right breast in 1 year. A negative mammogram report should not preclude additional follow up of suspicious palpable abnormalities. Patient should continue monthly self breast exam. A clinical breast exam by your physician is recommended on an annual basis and results should be correlated with mammographic findings. Electronically signed and approved by: Leonardo Webster D.O. Radiologis
== END | disposition home or self-care (01) ==
LOC: RADMAMWWP 10:49
PROVIDERS: ATTEND Obstetrics & Gynecology
DX: Z12.31 Encounter for screening mammogram for malignant neoplasm of breast (principal); Z78.0 Asymptomatic menopausal state; Z85.3 Personal history of malignant neoplasm of breast
CPT/HCPCS: 77067

== ENCOUNTER → 2022-12-27 | Outpatient (CLI) | payer MEDICARE ==
--- NOTE | 2022-12-27 13:35 | BD ---
EXAMINATION TYPE: Axial Bone Density DATE OF EXAM: 12/27/2022 CLINICAL HISTORY: 82 years old Female. ICD-10 CODE: M85.88 disorder of bone Height: 63.5 Weight: 136.21 FRAX RISK QUESTIONS: Alcohol (3 or more units per day): no Family History (Parent hip fracture): no Glucocorticoids (More than 3mos): no (Ex: prednisone, prednisolone, methylprednisolone, dexamethasone, and hydrocortisone). History of Fracture in Adulthood: no Secondary Osteoporosis: 1. Type 1 Diabetes: no 2. Hyperthyroidism: no 3. Menopause before 45: no 4. Malnutrition: no 5. Chronic liver disease: no Rheumatoid Arthritis: no Current Tobacco Use: no RISK FACTORS HISTORY OF: Surgery to Spine/Hip(right/left)/Wrist (right/left): right hip When: 2 years ago Family History of Osteoporosis: yes Active: yes Diet low in dairy products/other sources of calcium: yes Postmenopausal woman: yes Lost more than 2 inches in height since high school: no MEDICATIONS: Thyroid Medications: thyroid How Lon years Additional History: EXAM MEASUREMENTS: Bone mineral densitometry was performed using the [employer] System. Bone mineral density as measured about the Lumbar spine is: ----- L1-L4(G/cm2): 1.062 T Score Values are as follows: ----- L1: -2.4 ----- L2: -1.5 ----- L3: -0.2 ----- L4: -0.2 ----- L1-L4: -1.0 Z Score Values are as follows: ----- L1: -0.5 ----- L2: 0.4 ----- L3: 1.7 ----- L4: 1.7 ----- L1-L4: 1.0 Bone mineral density has: increased 0.8 % since study of: 12.12.2020 Bone mineral density about the L hip (g/cm2): 0.868 T Score values are as follows: -----L Neck: -1.0 -----L Total: -1.1 Z Score values are as follows: -----L Neck: 1.3 -----L Total: 1.0 Bone mineral density has: INCREASED 1.4 % since study of: 1 FRAX%s: The graph provided illustrates a 11.5 % chance for a major osteoporotic fx and a 2.5% chance for the hips probability for fx in 10 years time. IMPRESSION: Osteopenia (T Score between -2.5 and -1). There is slightly increased risk of fracture and the patient may be considered for treatment. Re-Screen 2-5 years. NOTE: T-SCORE=SD OF THE YOUNG ADULT MEAN.
--- NOTE | 2022-12-30 14:26 | MM ---
Reason for Exam: Screening (asymptomatic). Last mammogram was performed 1 year(s) and 1 month(s) ago. Patient History: Menarche at age 13. First Full-Term at age 26. Postmenopausal. Breast cancer, left, age 44. Previous chemotherapy at age 44. Tamoxifen for 5 years from age 45 until age 50. 1985, Mastectomy on the Left side. 1985, Benign Excisional Biopsy on the right side. Chemotherapy. Paternal cousin (zachery) had breast cancer, age 50. Prior Study Comparison: 10/20/2019 Bilateral Screening Mammogram, [facility]. 12/12/2020 Bilateral Screening Mammogram, [facility]. 12/20/2021 Right MG 3D scr angie unilateral w/cad., [facility]. Tissue Density: The breast tissue is heterogeneously dense. This may lower the sensitivity of mammography. Findings: Analyzed By CAD. Pattern is stable. Benign vascular calcification is identified. No significant interval changes are evident. No suspicious groups of microcalcifications, spiculated or lobular masses, architectural distortion or other secondary signs of malignancy are mammographically apparent. Overall Assessment: Benign, BI-RAD 2 Management: Screening Mammogram of the right breast in 1 year. A negative mammogram report should not preclude additional follow up of suspicious palpable abnormalities. Patient should continue monthly self breast exam. A clinical breast exam by your physician is recommended on an annual basis and results should be correlated with mammographic findings. Electronically signed and approved by: Leonardo Webster D.O. Radiologis
== END | disposition home or self-care (01) ==
LOC: RADMAMWWP 11:37
PROVIDERS: ATTEND Obstetrics & Gynecology
DX: Z12.31 Encounter for screening mammogram for malignant neoplasm of breast (principal); M85.89 Other specified disorders of bone density and structure, multiple sites; Z78.0 Asymptomatic menopausal state; Z80.3 Family history of malignant neoplasm of breast
CPT/HCPCS: 77067; 77080

== ENCOUNTER → 2023-01-10 | Outpatient (CLI) | payer MEDICARE ==
[2023-01-10 11:20] VITALS: BP 121/76; PULSE 83; RESP 15; TEMP 98.2
== END ==
LOC: PROCWHC3 10:54
PROVIDERS: ATTEND Family Medicine
DX: M81.0 Age-related osteoporosis without current pathological fracture (principal)
CPT/HCPCS: 96372; J0897

== ENCOUNTER → 2023-07-14 | Outpatient (CLI) | payer MEDICARE ==
[2023-07-14] MEDS: DENOSUMAB 60 MG/ML 1 ML SYRINGE SQ ONE (11:09)
[2023-07-14 11:15] VITALS: BP 152/70; PULSE 85; RESP 16; TEMP 98.3
== END ==
LOC: PROCWHC3 10:52
PROVIDERS: ATTEND Family Medicine
DX: M81.0 Age-related osteoporosis without current pathological fracture (principal)
CPT/HCPCS: 96372; J0897

== ENCOUNTER → 2024-06-11 | Outpatient (CLI) | payer MEDICARE ==
--- NOTE | 2024-06-11 14:47 | MM ---
Reason for Exam: Screening (asymptomatic). Last mammogram was performed 1 year(s) and 5 month(s) ago. Patient History: Menarche at age 13. First Full-Term at age 26. Postmenopausal. Breast cancer, left, age 44. Previous chemotherapy at age 44. Tamoxifen for 5 years from age 45 until age 50. 1985, Mastectomy on the Left side. 1985, Benign Excisional Biopsy on the right side. Chemotherapy. Paternal cousin (zachery) had breast cancer, age 50. Prior Study Comparison: 12/12/2020 Bilateral Screening Mammogram, [facility]. 12/20/2021 Right MG 3D scr angie unilateral w/cad., [facility]. 12/27/2022 Bilateral MG 3D screening mammo w/cad, [facility]. Tissue Density: Right: The breasts are heterogeneously dense, which may obscure small masses. Findings: Analyzed By CAD. There is no new worrisome focal mass or suspicious cluster of microcalcifications right breast. Benign-appearing vascular calcification is redemonstrated. Overall Assessment: Negative, BI-RAD 1 Management: Screening Mammogram of the right breast in 1 year. A clinical breast exam by your physician is recommended on an annual basis and results should be correlated with mammographic findings. [facility], , 06/11/2024 2:44 PM. Electronically signed and approved by: Tristen Larry M.D.
== END | disposition home or self-care (01) ==
LOC: RADMAMWWP 13:35
PROVIDERS: ATTEND Family Medicine
DX: Z12.31 Encounter for screening mammogram for malignant neoplasm of breast (principal); Z78.0 Asymptomatic menopausal state; Z85.3 Personal history of malignant neoplasm of breast; R92.331 Mammographic heterogeneous density, right breast
CPT/HCPCS: 77067

== ENCOUNTER → 2024-06-23 | Outpatient (CLI) | payer MEDICARE ==
[2024-06-23 11:04] VITALS: BP 162/70; PULSE 79; RESP 18; TEMP 98
[2024-06-23] MEDS: DENOSUMAB 60 MG/ML 1 ML SYRINGE SQ NR (11:06)
== END ==
LOC: PROCWHC3 10:53
PROVIDERS: ATTEND Family Medicine
DX: M81.0 Age-related osteoporosis without current pathological fracture (principal)
CPT/HCPCS: 96372; J0897